=== PATIENT | male | born 1980 | race Caucasian/White ===

== ENCOUNTER 2023-12-30 03:40 | Emergency (ER) | payer SELFPAY ==
[2023-12-30] MEDS ORDERED: Ondansetron PF 4 MG/2 ML Vial ONE (04:12)
[2023-12-30 04:44] LABS: #Basophils 0.1 10x3/uL (0.0-0.2); #Eosinphils 0.1 10x3/uL (0.0-0.5); #Monocytes 0.8 10x3/uL (0.0-1.1); #Neutrophils 3.9 10x3/uL (1.5-8.4); %Basophils 1.6 % (0.0-2.0); %Lymphocytes 26.7 % (18.0-47.0); %Monocytes 12.3 % (0.0-10.0); %Neutrophils 57.7 % (40.0-75.0); Hematocrit 40.3 % (38.8-50.0); Hemoglobin 14.6 g/dL (13.5-17.5); Mean Corpuscular HGB CONC 36.2 g/dL (32.0-36.0); Mean Corpuscular Hemoglobin 36.3 pg (27.0-33.0); Mean Corpuscular Volume 100.2 fl (81.2-95.1); Mean Platelet Volume 10.8 fl (7.4-10.4); Platelet Count 178 10x3/uL (150-450); Red Blood Cell (RBC) Count 4.02 10x6/uL (4.32-5.72); White Blood Cell (WBC) Count 6.7 10x3/uL (3.5-10.5)
[2023-12-30 04:49] LABS: Amphetamine Not Detected (NotDetected); Barbiturates Screen Not Detected (NotDetected); Benzodiazepine Screen Not Detected (NotDetected); Cocaine Metabolite Screen Not Detected (NotDetected); Methadone Not Detected (NotDetected); Methamphetamine Not Detected (NotDetected); Opiate Screen Not Detected (NotDetected); Oxycodone Screen Not Detected (NotDetected); Phencyclidine (PCP) Not Detected (NotDetected); THC/Cannabinoid Screen Not Detected (NotDetected); Tricyclic Screen Not Detected (NotDetected)
[2023-12-30 04:54] LABS: Acetaminophen Less than 10 mcg/mL (10.0-30.0); Alcohol 347.9 mg/dL (Less than 10); Magnesium 1.7 mg/dL (1.6-2.6); Salicylate Less than 8.0 mg/dL (15.0-30.0)
[2023-12-30 04:55] LABS: ALT (SGPT) 133 U/L (8-55); AST (SGOT) 399 U/L (5-34); Albumin 3.8 g/dL (3.5-5.0); Alkaline Phosphatase 310 U/L (40-110); Anion Gap 20 mmol/L (10-20); BUN (Urea Nitrogen) Less than 4 mg/dL (8.9-20.6); Bilirubin, Total 1.7 mg/dL (0.2-1.2); Calc. Creatinine Clearance 0 mL/min (70-130); Calcium 8.6 mg/dL (7.8-10.44); Carbon Dioxide 25 mmol/L (22-29); Chloride 94 mmol/L (98-107); Estimated GFR 117; Globulin 3.3 g/dL (2.4-3.5); Glucose 129 mg/dL (70-105); Potassium 3.8 mmol/L (3.5-5.1); Protein, Total 7.1 g/dL (6.0-8.3); Sodium 135 mmol/L (136-145)
[2023-12-30 05:24] LABS: SARS-CoV-2 NAA Rapid Test Not Detected (NotDetected)
[2023-12-30] MEDS ORDERED: Ibuprofen 200 MG TAB ONE (09:12)
== END 2023-12-30 10:14 | disposition home or self-care (01) ==
LOC: CSHERS 03:40
DX: F10.229 Alcohol dependence with intoxication, unspecified (principal); F17.210 Nicotine dependence, cigarettes, uncomplicated
CPT/HCPCS: 70450; 71045; 80053; 80306; 80307; 83735; 84484; 85025; 93005; 96374; J2405; U0002